=== PATIENT | female | born 1975 | race Caucasian/White ===

== ENCOUNTER 2016-09-12 09:17 | Emergency (ER) | payer OTHER | END 2016-09-12 11:15 | disposition home or self-care (01) | LOC: ER 09:17 | DX: M54.41 Lumbago with sciatica, right side (principal); C79.82 Secondary malignant neoplasm of genital organs; J44.9 Chronic obstructive pulmonary disease, unspecified; E10.9 Type 1 diabetes mellitus without complications; K21.9 Gastro-esophageal reflux disease without esophagitis; Z90.711 Acquired absence of uterus with remaining cervical stump; Z88.0 Allergy status to penicillin; Z88.5 Allergy status to narcotic agent; Z88.6 Allergy status to analgesic agent ==